=== PATIENT | female | born 1955 | race Caucasian/White ===

== ENCOUNTER → 2016-06-21 | Outpatient (CLI) | payer OTHER ==
[~2016-06-21] MED LIST: ASPIRIN PO; BENICAR PO; CLONIDINE PO; MULTIVITAMIN; SYNTHROID PO
--- NOTE | ~2016-06-21 | CR123 ---
[facility] A Service of [facility] & [facility] / [facility] RADIOLOGY TEXT RESULTS PATIENT: JENNIFER REN LOCATION: [facility] : 55 UNIT #: [id number] AGE: [address]: Nila Collins MD SEX: F ORDER DR: [id number] [facility] [address]. [place], [place] [address] [id number] O MR#: [id number] Acc #: [id number] NAME: JENNIFER REN : 1955 SEX: F STUDY DATE/TIME: 06/21/2016 11:14 UNIT: [facility] ROOM: STUDY DESCRIPTION: CR Foot 2 Views Lt Attending Physician: Nila Collins M.D. Referring Physician: Nila Collins M.D. Ordering Physician: Nila Collins M.D. Primary Care Physician: Nila Collins M.D. MEDICAL IMAGING REPORT This report is preliminary unless electronic signature is present EXAM Left foot HISTORY Lateral foot pain for the past 2 months. TECHNIQUE 3 views of the foot were obtained. FINDINGS 3 views foot show healing fracture of the fourth distal metatarsal. There appears to be adequate callus formation with good bridging bone. The remainder the foot is unremarkable. No radiodense foreign bodies are seen, and no erosions are noted. IMPRESSION Healing fracture of the fourth metatarsal. Adequate callus formation. Dictated by... Ermias Brambila M.D. THIS IS AN ELECTRONICALLY VERIFIED REPORT Ermias Brambila M.D. at 06/21/2016 3:44 PM HANNAH/lexa TD: 06/21/2016 12:56 JOB #: [id number] MEDICAL IMAGING REPORT Page 1 of 1 COPY
== END | disposition home or self-care (01) ==
LOC: CRAD 10:57
DX: M79.672 Pain in left foot (principal); S92.342D Displaced fracture of fourth metatarsal bone, left foot, subsequent encounter for fracture with routine healing
CPT/HCPCS: 73620